=== PATIENT | male | born 1980 | race Caucasian/White ===

== ENCOUNTER 2017-09-25 12:39 | Emergency (ER) | payer SELFPAY ==
[~2017-09-25] VITALS: Ht 165.1 cm; Wt 77.0 kg
[2017-09-25 13:31] VITALS: BP 149/100
== END 2017-09-25 18:52 | disposition home or self-care (01) ==
LOC: ER 13:52
DX: A63.0 Anogenital (venereal) warts (principal); F10.229 Alcohol dependence with intoxication, unspecified; F41.9 Anxiety disorder, unspecified
CPT/HCPCS: 99281